=== PATIENT | female | born 1965 | race Caucasian/White ===

== ENCOUNTER 2016-08-25 10:09 | Emergency (ER) | payer BC ==
--- NOTE | 2016-08-25 10:19 | PDOC ---
History of Present Illness - General Chief Complaint: Respiratory Stated Complaint: EMPLOYEE, COUGH, CONGESTION Time Seen by Provider: 08/25/16 10:18 Past History - Past Medical History Allergies/Adverse Reactions: Allergies Allergy/AdvReac Type Severity Reaction Status Date / Time levofloxacin [From Levaquin] AdvReac DIZZY Verified 08/25/16 10:11 Home Medications: Ambulatory Orders Topiramate [Topamax] 25 mg PO DAILY 08/05/15 Diphenoxylate HCl/Atropine [Lomotil Tablet] 2 each PO TID #12 tablet 08/06/15 Anemia: No Asthma: Yes (ALLERGIC ASTHMA) Cancer: No Cardiac Disorders: No CVA: No COPD: (PNEUMONIA 2012) CHF: No Dementia: No Diabetes: No GI Disorders: No Disorders: No HTN: No Hypercholesterolemia: No Liver Disease: No Seizures: No Thyroid Disease: No Other medical history: migraines - Surgical History Orthopedic Surgery: Yes (ARTHROSCOPY LEFT KNEE) - Psycho/Social/Smoking Cessation Hx Anxiety: No Suicidal Ideation: No Smoking Status: Yes Smoking History: Never smoked Have you smoked in the past 12 months: No Number of Cigarettes Smoked Daily: 0 Information on smoking cessation initiated: No Hx Alcohol Use: No Drug/Substance Use Hx: No Substance Use Type: None Hx Substance Use Treatment: No *Physical Exam - Vital Signs Last Vital Signs Temp Pulse Resp BP Pulse Ox 98.7 F 113 H 18 122/80 99 08/25/16 10:12 08/25/16 10:12 08/25/16 10:12 08/25/16 10:12 08/25/16 10:12 *DC/Admit/Observation/Transfer - Attestations Physician Attestion: 08/25/16 10:18 I, Dr. Modesto Webster, attest that this document has been prepared under my direction and personally reviewed by me in its entirety. I further attest, that it accurately reflects all work, treatment, procedures and medical decision -making performed by me.
[2016-08-25 10:20] VITALS: BP 122/80; PULSE 113; TEMP 98.7; BMI 23.3
[2016-08-25] MEDS ORDERED: ALBUTEROL SO4 2.5/IPRATROPIUM 0.5 INH SOL 3 ML VIAL.NEB. NEB ONE ×2 (10:39→10:40)
[2016-08-25] MEDS ORDERED: predniSONE 20 MG TABLET (UD) ONE (10:39)
[2016-08-25] MEDS ORDERED: predniSONE 20 MG TABLET (UD) PO ONE (10:40)
--- NOTE | 2016-08-25 10:43 | PDOC ---
History of Present Illness - General Chief Complaint: Respiratory Stated Complaint: EMPLOYEE, COUGH, CONGESTION Time Seen by Provider: 08/25/16 10:18 History Source: Patient Exam Limitations: No Limitations - History of Present Illness Initial Comments: 08/25/16 10:40 Patient is here with complaints of chronic cough. States had same type of cough last fall but resolved in May. Had a recurrence of the same type of moist wheezy cough a month and a half ago and has been persistent. Has tried multiple different medications including antihistamines, Flonase or steroid nasal sprays , Mucinex and dzrv-rqu-zxesodf meds with no resolved. Has not seen any physician for evaluation or treatment. Denies fever, denies any purulent drainage from nose, denies productive cough or shortness of breath. 08/25/16 16:08 Timing/Duration: reports: changing over time, intermittent Severity: reports: mild, moderate Possible Cause: Yes: allergen exposure (uncertain), chronic episodes Associated Symptoms: reports: cough, fever/chills, nasal congestion. denies: dizziness, earache, nasal drainage, shortness of breath Past History - Travel Traveled outside of the country in the last 30 days: No Close contact w/someone who was outside of country & ill: No - Past Medical History Allergies/Adverse Reactions: Allergies Allergy/AdvReac Type Severity Reaction Status Date / Time levofloxacin [From Levaquin] AdvReac DIZZY Verified 08/25/16 10:11 Home Medications: Ambulatory Orders Albuterol Sulfate [Proventil HFA Inhaler -] 1 - 2 inh PO QID #1 inhaler Cetirizine HCl/Pseudoephedrine [Allergy+Congestion Relf-D Tab] 1 each PO DAILY # 30 tab 08/25/16 Prednisone [Deltasone -] 20 mg PO BID #8 tablet 08/25/16 Anemia: No Asthma: Yes (ALLERGIC ASTHMA) Cancer: No Cardiac Disorders: No CVA: No COPD: (PNEUMONIA 2012) CHF: No Dementia: No Diabetes: No GI Disorders: No Disorders: No HTN: No Hypercholesterolemia: No Liver Disease: No Seizures: No Thyroid Disease: No Other medical history: migraines - Surgical History Orthopedic Surgery: Yes (ARTHROSCOPY LEFT KNEE) - Psycho/Social/Smoking Cessation Hx Anxiety: No Suicidal Ideation: No Smoking Status: Yes Smoking History: Never smoked Have you smoked in the past 12 months: No Number of Cigarettes Smoked Daily: 0 Information on smoking cessation initiated: No Hx Alcohol Use: No Drug/Substance Use Hx: No Substance Use Type: None Hx Substance Use Treatment: No Respiratory Specific PMHX - Complaint Specific PMHX Bronchitis: No Pneumonia: No Review of Systems - Review of Systems Able to Perform ROS?: Yes Is the patient limited Cameroonian proficient: Yes Constitutional: Yes: Symptoms Reported, See HPI, Malaise. No: Fever HEENTM: Yes: Symptoms Reported, See HPI, Nose Congestion. No: Ear Pain, Throat Pain, Difficulty Swallowing Respiratory: Yes: See HPI, Cough (non productive ). No: Wheezing Integumentary: Yes: See HPI. No: Symptoms Reported All Other Systems: Reviewed and Negative *Physical Exam - Vital Signs Last Vital Signs Temp Pulse Resp BP Pulse Ox 98.7 F 113 H 18 122/80 99 08/25/16 10:12 08/25/16 10:12 08/25/16 10:12 08/25/16 10:12 08/25/16 10:12 - Physical Exam General Appearance: Yes: Nourished, Appropriately Dressed, Apparent Distress, Mild Distress HEENT: positive: EULALIO, Normal ENT Inspection, TMs Normal, Pharynx Normal Neck: positive: Tender, Supple. negative: Lymphadenopathy (R), Lymphadenopathy (L) Respiratory/Chest: positive: Lungs Clear, Normal Breath Sounds. negative: Respiratory Distress, Rhonchi, Stridor, Wheezing Cardiovascular: positive: Regular Rate Musculoskeletal: positive: Normal Inspection Extremity: positive: Normal Capillary Refill, Normal Inspection, Normal Range of Motion Integumentary: positive: Normal Color, Dry, Warm, Pale Neurologic: positive: drawer maker II-XII NML intact, Fully Oriented, Alert, Normal Mood/ Affect, Normal Response, Motor Strength 5/5 Progress Note - Progress Note Progress Note: ALLERGIC rhinitis, with postnasal drip causing chronic cough. Breath sounds much improved after DuoNeb and prednisone. Patient states feels mildly better improved. Will continue prednisone, albuterol pump, and antihistamines with decongestant and have follow-up with service manager for further evaluation and testing *DC/Admit/Observation/Transfer Diagnosis at time of Disposition: Allergic rhinitis Qualifiers: Allergic rhinitis trigger: other Allergic rhinitis seasonality: unspecified seasonality Qualified Code(s): J30.89 - Other allergic rhinitis - Discharge Dispostion Disposition: HOME Condition at time of disposition: Stable Admit: No - Prescriptions Prescriptions: Cetirizine HCl/Pseudoephedrine [Allergy+Congestion Relf-D Tab] 1 each PO DAILY # 30 tab Prednisone [Deltasone -] 20 mg PO BID #8 tablet Albuterol Sulfate [Proventil HFA Inhaler -] 1 - 2 inh PO QID #1 inhaler - Referrals Referrals: Ford Malcolm MD [Primary Care Provider] - Matt Avalos MD [Staff Physician] - - Patient Instructions Printed Discharge Instructions: DI for Allergic Rhinitis Additional Instructions: Rest, drink lots of fluids: Teas, water, soups Saltwater gargles. Consider humidifier in room at night Steamy showers/seem to face break up mucus Avoid contact with allergens, exposure to pollens, close windows on a windy day Lots of handwashing and good hygiene Continue yoew-dqv-iobsahv medications for symptomatic relief- may use allergic eyedrops for itching I COntinue Predisone as directed Albuterol Inhaler 2 puffs 4 times a day for 3 days then as needed Continue antihistamines daily until pollen season is over; Zyrtec, Claritin, Padmini during the daytime and Benadryl at nighttime as will make sleepy Tylenol or Motrin for fever and pain Followup with private physician in one to 2 days as needed Consider following up with an service manager/blanket cutter hand for skin testing and possible allergy shots Return to emergency department for worsened symptoms, fevers, dehydration - Post Discharge Activity
== END 2016-08-25 11:19 | disposition home or self-care (01) ==
LOC: JER 10:09 → JERFT 10:09
PROC: 3E0F7GC Introduction of Other Therapeutic Substance into Respiratory Tract, Via Natural or Artificial Opening (ICD-10-PCS; principal; 2016-08-25)
DX: J30.89 Other allergic rhinitis (principal)
CPT/HCPCS: 99281-25

== ENCOUNTER 2017-06-10 05:14 | Day surgery (SDC) | payer BC ==
[2017-06-03 11:55] VITALS: BMI 25.8
[2017-06-10 06:18] VITALS: TEMP 98.1
[2017-06-10] MEDS ORDERED: LIDOCAINE HCL 1%, 10 MG/ML (20ML VIAL) ONE (07:42)
[2017-06-10] MEDS ORDERED: methylPREDNISolone ACET (DEPO) 80 MG/1 ML VIAL ONE (07:42)
[2017-06-10] MEDS ORDERED: BUPIVACAINE HCL/PF 0.25% (2.5MG/ML) 10 ML VIAL ONE ×2 (07:42→07:45)
[2017-06-10] MEDS ORDERED: LIDOCAINE HCL/PF 2% SDV 5ML VIAL ONE (07:44)
[2017-06-10] MEDS ORDERED: PROPOFOL 20 ML ONE (07:45)
[2017-06-10] MEDS ORDERED: BUPIVACAINE HCL/PF 0.5% (5MG/ML) 10 ML VIAL ONE (07:45)
[2017-06-10] MEDS ORDERED: BUPIVACAINE HCL/PF 0.25% (2.5MG/ML) 10 ML VIAL IJ ONE (07:50)
[2017-06-10] MEDS ORDERED: LIDOCAINE HCL 1% PRESERVATIVE FREE - 30ML VIAL IJ ONE (07:51)
[2017-06-10] MEDS ORDERED: methylPREDNISolone ACET (DEPO) 80 MG/1 ML VIAL IJ ONE (07:51)
[2017-06-10 08:35] VITALS: PULSE 76
--- NOTE | 2017-06-10 12:02 | OP ---
DATE OF OPERATION: 06/10/2017 PREOPERATIVE DIAGNOSIS: L4-5 foraminal stenosis with lumbar radiculopathy. POSTOPERATIVE DIAGNOSIS: L4-5 foraminal stenosis with lumbar radiculopathy. ATTENDING SURGEON: Ford Scott MD PROCEDURE: 1. Left L4-5 epidural steroid injection. 2. Intraoperative fluoroscopy. ANESTHESIA: Local with IV sedation. ANESTHESIOLOGIST: Mine Phipps MD INDICATION: The patient is a 51-year-old female with back pain and lumbar radiculopathy. Because of her intractable symptoms and failure of conservative treatment over the past several weeks, she is consented for the first epidural steroid injection. The risks of the procedure include, but are not limited to, bleeding, infection, spinal headache, and neurological injury. The patient understands the indication for the procedure, procedure in detail, risks and benefits, and alternatives for treatment of her lumbar condition and wished to proceed. No guarantees were given for a favorable outcome. PROCEDURE IN DETAIL: After the patient was taken to the operating room, she was placed in prone position with a pillow under her hips. Lumbar region was cleaned with alcohol and prepped with Betadine. Skin wheal was raised with 5 mL of 1% Xylocaine. A 20-gauge spinal needle was inserted under AP and lateral fluoroscopic guidance from a left-sided approach to L4-5. [id number] technique was utilized, and there was no CSF or blood backflow. Depo-Medrol 80 mg and 1 mL of 0.25% Marcaine were injected. The needle was withdrawn. Sterile bandage was applied. The patient tolerated the procedure well and was returned back to supine position, moving bilateral extremities well. She did not complain of headache. FORD SCOTT M.D. [id number]
[2017-06-10 12:27] VITALS: BP 107/62
== END 2017-06-10 10:00 | disposition home or self-care (01) ==
LOC: JASU-SURG 05:14
PROVIDERS: ATTEND Neurological Surgery
PROC: 3E0R33Z Introduction of Anti-inflammatory into Spinal Canal, Percutaneous Approach (ICD-10-PCS; 2017-06-10)
PROC: B01BZZZ Fluoroscopy of Spinal Cord (ICD-10-PCS; 2017-06-10)
PROC: 3E0R3BZ Introduction of Anesthetic Agent into Spinal Canal, Percutaneous Approach (ICD-10-PCS; principal; 2017-06-10 07:30)
DX: M48.061 Spinal stenosis, lumbar region without neurogenic claudication (principal); M54.16 Radiculopathy, lumbar region
CPT/HCPCS: 76000-TC

== ENCOUNTER 2017-07-01 05:00 | Day surgery (SDC) | payer BC ==
[2017-06-26 12:54] VITALS: BMI 25.8
[2017-07-01 07:10] VITALS: TEMP 98.3
[2017-07-01] MEDS ORDERED: methylPREDNISolone ACET (DEPO) 80 MG/1 ML VIAL ONE (07:34)
[2017-07-01] MEDS ORDERED: BUPIVACAINE HCL/PF 0.25% (2.5MG/ML) 10 ML VIAL ONE (07:34)
[2017-07-01] MEDS ORDERED: LIDOCAINE HCL/PF 2% SDV 5ML VIAL ONE (08:03)
[2017-07-01] MEDS ORDERED: PROPOFOL 20 ML ONE (08:03)
[2017-07-01] MEDS ORDERED: LIDOCAINE HCL 1%, 10 MG/ML (20ML VIAL) NR ONE (08:15)
[2017-07-01] MEDS ORDERED: methylPREDNISolone ACET (DEPO) 80 MG/1 ML VIAL IJ ONE (08:17)
[2017-07-01] MEDS ORDERED: BUPIVACAINE HCL/PF 0.25% (2.5MG/ML) 10 ML VIAL IJ ONE (08:18)
--- NOTE | 2017-07-01 08:41 | OP ---
DATE OF OPERATION: 07/01/2017 PREOPERATIVE DIAGNOSIS: Acute left L5 radiculopathy. POSTOPERATIVE DIAGNOSIS: Acute left L5 radiculopathy. ATTENDING SURGEON: Ford Scott MD PROCEDURE: 1. Left L4-L5 epidural steroid injection. 2. Intraoperative fluoroscopy. ANESTHESIA: Local with IV sedation. ANESTHESIOLOGIST: Matt Roberson MD INDICATIONS: The patient is a 51-year-old female with 1-1/2 month history of intractable lower back pain and lumbar radiculopathy. Because of intractable symptoms and failure of conservative treatment, she has consented for her 2nd epidural steroid injection. The risks of the procedure include, but are not limited to, bleeding, infection, spinal headache, and neurological injury. The patient understands the indications for the procedure, the procedure in detail, risks and benefits, and alternative treatments for her lumbar condition, and she wishes to proceed. No guarantees were given for a favorable outcome. PROCEDURE IN DETAIL: After the patient was taken to the operating room, she was placed in the prone position with a pillow under her hips. Lumbar region was cleaned with alcohol and prepared with Betadine. A skin wheal was raised with 5 mL of 1% Xylocaine, and a 22-gauge spinal needle was inserted under AP fluoroscopic guidance from a left-sided approach to L4-L5 interlaminar space. Loss of resistance technique was utilized, and there was no CSF or blood backflow. Depo-Medrol 80 mg and 1 mL of 0.25% Marcaine were injected. The needle was withdrawn and sterile bandage was applied. The patient tolerated the procedure well. She was turned back to the supine position, moving bilateral lower extremities well. She did not complain of a headache. FORD SCOTT M.D. [id number]
[2017-07-01 10:30] VITALS: BP 107/63; PULSE 74
== END 2017-07-01 10:45 | disposition home or self-care (01) ==
LOC: JASU-SURG 05:00
PROVIDERS: ATTEND Neurological Surgery
PROC: 3E0R33Z Introduction of Anti-inflammatory into Spinal Canal, Percutaneous Approach (ICD-10-PCS; 2017-07-01)
PROC: B01BZZZ Fluoroscopy of Spinal Cord (ICD-10-PCS; 2017-07-01)
PROC: 3E0R3BZ Introduction of Anesthetic Agent into Spinal Canal, Percutaneous Approach (ICD-10-PCS; principal; 2017-07-01 08:00)
DX: M54.16 Radiculopathy, lumbar region (principal); M54.5 Low back pain
CPT/HCPCS: 76000-TC

== ENCOUNTER 2017-07-14 15:24 | Emergency (ER) | payer BC ==
[2017-07-14 15:32] VITALS: BP 123/81; PULSE 118; TEMP 98.6; BMI 25.8
--- NOTE | 2017-07-14 15:33 | PDOC ---
Rapid Medical Evaluation Time Seen by Provider: 07/14/17 15:29 Medical Evaluation: Allergies Allergy/AdvReac Type Severity Reaction Status Date / Time levofloxacin [From Levaquin] AdvReac DIZZY Verified 07/14/17 15:29 tramadol AdvReac Low Blood Verified 07/14/17 15:29 Pressure 07/14/17 15:30 I have performed a brief in-person evaluation of this patient. The patient presents with a chief complaint of: dizzy, lightheadedness, denies LOC, back pain (L4-L5) 12/08, followed by Dr. Monroy Pertinent physical exam findings: well appearing I have ordered the following: CBC, CMP The patient will proceed to the ED for further evaluation. Discharge Disposition - Diagnosis Dizziness - Referrals Referrals: Ford Malcolm MD [Primary Care Provider] - - Patient Instructions - Post Discharge Activity
[2017-07-14 16:46] LABS: BASO % 0.6 % (0-2.0); HEMATOCRIT 40.2 % (32.4-45.2); HEMOGLOBIN 13.5 GM/dL (10.7-15.3); LYMPH % 16.1 % (8-40); MCH 28.6 pg (25.7-33.7); MCHC 33.5 g/dl (32.0-36.0); MEAN CELL VOLUME 85.4 fl (80-96); MEAN PLT VOLUME 8.6 fl (7.5-11.1); MONO % 6.4 % (3.8-10.2); NEUT % 75.9 % (42.8-82.8); PLATELET COUNT 236 K/MM3 (134-434); RBC 4.71 M/mm3 (3.60-5.2); WHITE BLOOD COUNT 9.4 K/mm3 (4.0-10.0)
[2017-07-14] MEDS ORDERED: SODIUM CHLORIDE 0.9% 1000 ML INFUS.BAG IV ONE (16:47)
[2017-07-14] MEDS ORDERED: ONDANSETRON *ODT* 4 MG TABLET SL ONE (16:50)
--- NOTE | 2017-07-14 16:53 | PDOC ---
History of Present Illness - History of Present Illness Initial Comments: 07/14/17 17:07 The patient is a 51 year old female, with a significant past medical history of chronic back pain, migraines, who presents to the emergency department s/p near syncopal episode. The patient is an employee (Nurse) with the hospital and reports that while driving home she began to feel lightheaded. She denies syncope or loss of consciousness. The patient reports she was able to drive back to the hospital. However, after arriving at the hospital she began to feel lightheaded again. The patient also reports a gradual headache beginning this morning. The patient reports taking Excedrin for headache with mild relief. She denies any recent chest pain, palpitations or shortness of breath. She denies recent swelling or calf tenderness. She denies recent nausea, vomit, diarrhea or constipation. Allergies: Levofloxacin, Tramadol PCP: Dr. Malcolm <Esteban Betancourt - Last Filed: 07/14/17 17:07> - General History Source: Patient Exam Limitations: No Limitations <Gladis Carrera - Last Filed: 07/14/17 18:59> - General Chief Complaint: Lightheaded Stated Complaint: EMPLOYEE, LIGHTHEADED Time Seen by Provider: 07/14/17 15:29 Past History <Esteban Betancourt - Last Filed: 07/14/17 17:07> - Past Medical History Anemia: No Asthma: Yes (ALLERGIC ASTHMA) Cancer: No Cardiac Disorders: No CVA: No COPD: Yes (PNEUMONIA 2013) CHF: No Dementia: No Diabetes: No GI Disorders: No Disorders: No HTN: No Hypercholesterolemia: No Liver Disease: No Seizures: No Thyroid Disease: No Other medical history: HERNIATED DISCS. MIGRAINES. - Surgical History Abdominal Surgery: Yes Orthopedic Surgery: Yes (ARTHROSCOPY LEFT KNEE) - Suicide/Smoking/Psychosocial Hx Smoking Status: Yes Smoking History: Never smoked Have you smoked in the past 12 months: No Number of Cigarettes Smoked Daily: 0 Hx Alcohol Use: No Drug/Substance Use Hx: No Substance Use Type: None Hx Substance Use Treatment: No <Gladis Carrera - Last Filed: 07/14/17 18:59> - Past Medical History Allergies/Adverse Reactions: Allergies Allergy/AdvReac Type Severity Reaction Status Date / Time levofloxacin [From Levaquin] AdvReac DIZZY Verified 07/14/17 15:29 tramadol AdvReac Low Blood Verified 07/14/17 15:29 Pressure Home Medications: Ambulatory Orders Topiramate [Topamax] 50 mg PO BID 06/03/17 Gabapentin [Neurontin] 100 mg PO TID 06/29/17 Ondansetron [Zofran Odt -] 4 mg SL TID #21 od.tablet 07/14/17 Oseltamivir Phosphate [Tamiflu -] 75 mg PO BID #10 capsule 07/14/17 Review of Systems - Review of Systems Comments:: 07/14/17 17:20 GENERAL/CONSTITUTIONAL: No fever or chills. No weakness. HEAD, EYES, EARS, NOSE AND THROAT: No change in vision. No ear pain or discharge. No sore throat. CARDIOVASCULAR: No chest pain or shortness of breath. RESPIRATORY: No cough, wheezing, or hemoptysis. GASTROINTESTINAL: No nausea, vomiting, diarrhea or constipation. GENITOURINARY: No dysuria, frequency, or change in urination. MUSCULOSKELETAL: No joint or muscle swelling or pain. No neck or back pain. SKIN: No rash NEUROLOGIC: +Headache. +Lightheadedness. No loss of consciousness, or change in strength/sensation. ENDOCRINE: No increased thirst. No abnormal weight change. HEMATOLOGIC/LYMPHATIC: No anemia, easy bleeding, or history of blood clots. ALLERGIC/IMMUNOLOGIC: No hives or skin allergy. <Esteban Betancourt - Last Filed: 07/14/17 17:07> *Physical Exam - Vital Signs Last Vital Signs Temp Pulse Resp BP Pulse Ox 98.6 F 118 H 18 123/81 98 07/14/17 15:28 07/14/17 15:28 07/14/17 15:28 07/14/17 15:28 07/14/17 15:28 - Physical Exam Comments: 07/14/17 17:21 GENERAL: Awake, alert, and fully oriented, in no acute distress HEAD: No signs of trauma EYES: PERRLA, EOMI, sclera anicteric, conjunctiva clear ENT: +Dry mucus membranes. Auricles normal inspection, hearing grossly normal, nares patent, oropharynx clear without exudates. NECK: Normal ROM, supple, no lymphadenopathy, JVD, or masses LUNGS: Breath sounds equal, clear to auscultation bilaterally. No wheezes, and no crackles HEART: Regular rate and rhythm, normal S1 and S2, no murmurs, rubs or gallops BACK: +Lower back pain. ABDOMEN: Soft, nontender, normoactive bowel sounds. No guarding, no rebound. No masses EXTREMITIES: Normal range of motion, no edema. No clubbing or cyanosis. No cords, erythema, or tenderness NEUROLOGICAL: Cranial nerves II through XII grossly intact. Normal speech, normal gait SKIN: Warm, Dry, normal turgor, no rashes or lesions noted. <Esteban Betancourt - Last Filed: 07/14/17 17:07> - Vital Signs Last Vital Signs Temp Pulse Resp BP Pulse Ox 98.6 F 118 H 18 123/81 98 07/14/17 15:28 07/14/17 15:28 07/14/17 15:28 07/14/17 15:28 07/14/17 15:28 <Gladis Carrera - Last Filed: 07/14/17 18:59> ED Treatment Course - LABORATORY CBC & Chemistry Diagram: 07/14/17 16:22 07/14/17 16:21 - ADDITIONAL ORDERS Additional order review: 07/14/17 16:22 RBC 4.71 MCV 85.4 MCHC 33.5 RDW 13.0 MPV 8.6 Neutrophils % 75.9 Lymphocytes % 16.1 Monocytes % 6.4 Eosinophils % 1.0 Basophils % 0.6 <Esteban Betancourt - Last Filed: 07/14/17 17:07> - LABORATORY CBC & Chemistry Diagram: 07/14/17 16:22 07/14/17 16:21 <Gladis Carrera - Last Filed: 07/14/17 18:59> Medical Decision Making - Medical Decision Making 07/14/17 18:50 A/P: Patient here with dizziness and lightheadedness, no syncope, CBC, CMP, urine performed all reviewed and negative. CBC reveals no anemia, leukocytosis, bandemia, lymphocytosis, or neutrophilia. Platelets are within normal values at this time. CMP reveals no electrolyte imbalance, there is no transaminitis, renal function is normal, there is no hyperbilirubinemia. Laboratory Results - last 24 hr 07/14/17 07/14/17 07/14/17 16:21 16:22 17:31 WBC 9.4 RBC 4.71 Hgb 13.5 Hct 40.2 MCV 85.4 MCH 28.6 MCHC 33.5 RDW 13.0 Plt Count 236 MPV 8.6 Neutrophils % 75.9 Lymphocytes % 16.1 Monocytes % 6.4 Eosinophils % 1.0 Basophils % 0.6 Sodium 140 Potassium 3.6 Chloride 108 H Carbon Dioxide 24 Anion Gap 8 BUN 16 Creatinine 1.0 Creat Clearance w eGFR 58.69 Random Glucose 88 Calcium 8.7 Total Bilirubin 0.2 D AST 9 L ALT 22 Alkaline Phosphatase 105 Total Protein 7.5 Albumin 4.0 Urine HCG, Qual Negative CT was performed with no acute intracranial pathology. Twelve-lead EKG was performed and reviewed by me. There is normal sinus rhythm with a rate of 96. There is a nonspecific T-wave abnormality as compared to EKG of August 13 criteria for septal infarct is no longer present. Patient feels better after fluids, Toradol 30 mg for pain and Zofran. I will DC patient home to increase fluids, Tamiflu, Zofran as needed for nausea increase fluid intake I discussed the physical exam findings, ancillary test results and final diagnoses with the patient. I answered all of the patient's questions. The patient was satisfied with the care received and felt comfortable with the discharge plan and treatment plan. The patient will call to arrange follow-up and will return to the Emergency Department with any new, persistent or worsening symptoms. 07/14/17 18:57 <Gladis Carrera - Last Filed: 07/14/17 18:59> *DC/Admit/Observation/Transfer - Attestations Scribe Attestion: 07/14/17 17:22 Documentation prepared by Esteban Betancourt, acting as medical numerical control operator for Gladis Carrera, Emergency Dept, [employer] <Esteban Betancourt - Last Filed: 07/14/17 17:07> - Discharge Dispostion Admit: No <Gladis Carrera - Last Filed: 07/14/17 18:59> Diagnosis at time of Disposition: Dizziness - Discharge Dispostion Disposition: HOME Condition at time of disposition: Stable - Prescriptions Prescriptions: Ondansetron [Zofran Odt -] 4 mg SL TID #21 od.tablet Oseltamivir Phosphate [Tamiflu -] 75 mg PO BID #10 capsule - Referrals Referrals: Ford Malcolm MD [Primary Care Provider] - - Patient Instructions Printed Discharge Instructions: DI for Dizziness-Nonvertigo Additional Instructions: Please make sure to increase fluids if fever develops start the Tamiflu Zofran as ordered If chest pain, shortness of breath, any other concerns return to ER - Post Discharge Activity Forms/Work/School Notes: Back to Work
[2017-07-14] MEDS ORDERED: ONDANSETRON *ODT* 4 MG TABLET ONE (17:00)
[2017-07-14 17:13] LABS: CALCIUM 8.7 mg/dL (8.5-10.1); CHLORIDE 108 mmol/L (98-107); POTASSIUM 3.6 mmol/L (3.5-5.1); SODIUM 140 mmol/L (136-145)
[2017-07-14 17:19] LABS: ALK PHOS 105 U/L (45-117); ANION GAP 8 (8-16); BILIRUBIN,TOTAL 0.2 mg/dL (0.2-1.0); BLOOD UREA NITROGEN 16 mg/dL (7-18); CO2 24 mmol/L (21-32); GLUCOSE,RANDOM 88 mg/dL (74-106); SGOT/AST 9 U/L (15-37); SGPT/ALT 22 U/L (12-78); TOT PROT 7.5 g/dl (6.4-8.2)
[2017-07-14] MEDS ORDERED: KETOROLAC TROMETHAMINE 60 MG/2 ML VIAL IVPUSH ONE (17:51)
[2017-07-14] MEDS ORDERED: KETOROLAC TROMETHAMINE 30 MG/1 ML VIAL ONE (18:42)
--- NOTE | 2017-07-15 10:10 | EKG ---
Test Reason : Blood Pressure : / mmHG Vent. Rate : 096 BPM Atrial Rate : 096 BPM P-R Int : 158 ms QRS Dur : 080 ms QT Int : 348 ms P-R-T Axes : 054 047 047 degrees QTc Int : 439 ms NORMAL SINUS RHYTHM NONSPECIFIC T WAVE ABNORMALITY ABNORMAL ECG WHEN COMPARED WITH ECG OF 13-AUG-2014 12:03, CRITERIA FOR SEPTAL INFARCT ARE NO LONGER PRESENT Confirmed by KIMBERLY GEORGES, HORTENCIA ([id number]) on 07/15/2017 10:10:37 AM Referred By: Confirmed By:HORTENCIA HARRIS MD
== END 2017-07-14 19:12 | disposition home or self-care (01) ==
LOC: SUPCPDRO 15:24 → JERFT 15:24 → JER 15:24 → JERFT 19:12
PROC: 3E0333Z Introduction of Anti-inflammatory into Peripheral Vein, Percutaneous Approach (ICD-10-PCS; principal; 2017-07-14)
DX: R42 Dizziness and giddiness (principal); Z87.09 Personal history of other diseases of the respiratory system; Z86.69 Personal history of other diseases of the nervous system and sense organs
CPT/HCPCS: 36415; 70450-TC; 80053; 84703; 85025; 93005; 93010; 99282-25

== ENCOUNTER 2017-07-29 07:29 | Day surgery (SDC) | payer BC ==
[2017-07-29 08:04] VITALS: TEMP 98.2; BMI 25.0
[2017-07-29] MEDS ORDERED: LIDOCAINE HCL 1%, 10 MG/ML (20ML VIAL) ONE (09:45)
[2017-07-29] MEDS ORDERED: BUPIVACAINE HCL/PF 0.25% (2.5MG/ML) 10 ML VIAL ONE (09:45)
[2017-07-29] MEDS ORDERED: methylPREDNISolone ACET (DEPO) 80 MG/1 ML VIAL ONE ×2 (09:45→10:07)
[2017-07-29] MEDS ORDERED: MIDAZOLAM HCL 2 MG/2 ML SINGLE DOSE VIAL ONE (09:50)
[2017-07-29] MEDS ORDERED: PROPOFOL 20 ML ONE (10:03)
[2017-07-29] MEDS ORDERED: LIDOCAINE HCL 1%, 10 MG/ML (20ML VIAL) SNB ONE ×3 (10:06→10:09)
[2017-07-29] MEDS ORDERED: methylPREDNISolone ACET (DEPO) 80 MG/1 ML VIAL IM ONE ×2 (10:08→10:12)
[2017-07-29] MEDS ORDERED: BUPIVACAINE HCL/PF 0.25% (2.5MG/ML) 10 ML VIAL IJ ONE ×3 (10:08→10:09)
[2017-07-29] MEDS ORDERED: CLINDAMYCIN PHOSPHATE 600 MG/4 ML VIAL ONE (10:22)
--- NOTE | 2017-07-29 11:29 | OP ---
DATE OF OPERATION: 07/29/2017 PREOPERATIVE DIAGNOSES: 1. L4-5 degenerative disk disease. 2. Left lower extremity radiculopathy. POSTOPERATIVE DIAGNOSES: 1. L4-5 degenerative disk disease. 2. Left lower extremity radiculopathy. ATTENDING SURGEON: Ford Scott MD PROCEDURE: 1. Left L4-5 epidural steroid injection. 2. Intraoperative fluoroscopy. ANESTHESIA: Local with IV sedation. ANESTHESIOLOGIST: Matt Roberson MD INDICATION: The patient is a 52-year-old female with intractable lower back pain and left-sided lower extremity pain. MRI demonstrated degenerative disk disease at L4-5 with mild stenosis. She has undergone conservative treatment including physical therapy and has undergone 2 prior epidural steroid injections with some improvement in her symptomatology. She is here for a third injection. The risks of the procedure include, but are not limited to, bleeding, infection, spinal headache, and neurological injury. The patient understands the indication for the procedure, procedure in detail, risks and benefits and alternatives for the treatment of her lumbar condition and wishes to proceed. No guarantees are given for a favorable outcome. PROCEDURE IN DETAIL: After the patient was taken to the operating room, she was placed in the prone position with a pillow under her hips. The lumbar region was cleaned with alcohol and prepped with Betadine. A skin wheal was raised with 5 mL of 1% Xylocaine. A 22-gauge spinal needle was inserted under AP and lateral fluoroscopic guidance from a left-sided approach to L4-5 through interlaminar approach. Xoss-ve-[id number] technique was utilized, and there was no CSF or blood backflow. Depo-Medrol 80 mg and 1 mL of 0.25% Marcaine were injected. The needle was withdrawn. Sterile bandage was applied. The patient tolerated the procedure well and was returned back to supine position, moving bilateral extremities well. She did not complain of headache. FORD SCOTT M.D. [id number]
[2017-07-29 15:14] VITALS: PULSE 84
[2017-07-29 15:17] VITALS: BP 115/84
== END 2017-07-29 11:40 | disposition home or self-care (01) ==
LOC: JASU-SURG 07:29
PROVIDERS: ATTEND Neurological Surgery
PROC: 3E0R3BZ Introduction of Anesthetic Agent into Spinal Canal, Percutaneous Approach (ICD-10-PCS; 2017-07-29)
PROC: B01BZZZ Fluoroscopy of Spinal Cord (ICD-10-PCS; 2017-07-29)
PROC: 3E0R33Z Introduction of Anti-inflammatory into Spinal Canal, Percutaneous Approach (ICD-10-PCS; principal; 2017-07-29 09:30)
DX: M51.16 Intervertebral disc disorders with radiculopathy, lumbar region (principal)
CPT/HCPCS: 76000-TC-FY

== ENCOUNTER 2018-09-15 08:57 | Day surgery (SDC) | payer BC ==
[2018-09-10 14:23] VITALS: BMI 26.1
[2018-09-15] MEDS ORDERED: PROPOFOL 20 ML ONE ×2 (10:24)
[2018-09-15] MEDS ORDERED: LIDOCAINE HCL/PF 2% SDV 5ML VIAL ONE (10:24)
[2018-09-15 15:54] VITALS: TEMP 97.7
[2018-09-15 16:01] VITALS: BP 107/70; PULSE 77
--- NOTE | 2018-09-17 15:33 | PATH ---
Surgical Pathology Report Patient Name: BRAYDEN SMITH [facility]. Rec. #: [id number] /Age/Gender: 1965 (Age: 53) / F Account: [id number] Location: [facility] Taken: 09/15/2018 Received: 09/15/2018 Reported: 09/17/2018 Physicians: Raquel Ferreira M.D. Specimen(s) Received A: BX SECOND PORTION DUODENUM B: BX GASTRIC ANTRUM C: BX GE JUNCTION D: BX RIGHT COLON E: BX TRANSVERSE COLON F: BX DESCENDNG COLON G: BX RECTO-SIGMOID POLYP H: BX RECTUM Clinical History Abdominal pain, loose bowel movements Postoperative diagnosis: Peptic ulcer, irregular Z line, colon polyp Final Diagnosis A. SECOND PORTION DUODENUM, BIOPSY: DUODENAL MUCOSA WITH NO PATHOLOGIC FINDINGS. B. GASTRIC ANTRUM, BIOPSY: MILD CHRONIC GASTRITIS. IMMUNOSTAIN IS NEGATIVE FOR H PYLORI ORGANISMS. C. GE JUNCTION, BIOPSY: COLUMNAR (GASTRIC CARDIA-TYPE) MUCOSA SHOWING MILD CHRONIC INFLAMMATION. NEGATIVE FOR INTESTINAL METAPLASIA. NO ESOPHAGEAL (SQUAMOUS) MUCOSA IS IDENTIFIED. D. RIGHT COLON, BIOPSY: COLONIC MUCOSA WITH NO PATHOLOGIC FINDINGS. E. TRANSVERSE COLON, BIOPSY: COLONIC MUCOSA SHOWING BENIGN/REACTIVE LYMPHOID AGGREGATE. F. DESCENDING COLON, BIOPSY: COLONIC MUCOSA SHOWING BENIGN/REACTIVE LYMPHOID AGGREGATE. G. RECTO-SIGMOID, POLYP, BIOPSY: HYPERPLASTIC POLYP. H. RECTUM, BIOPSY: HYPERPLASTIC POLYP. Electronically Signed Janae Schmid M.D. Gross Description A. Received in formalin, labeled "biopsy second portion of duodenum" is a miller, irregular portion of soft tissue measuring 0.3 cm. in greatest dimension. The specimen is submitted in toto in one cassette. B. Received in formalin, labeled "biopsy gastric antrum" is a miller, irregular portion of soft tissue measuring 0.4 cm. in greatest dimension. The specimen is submitted in toto in one cassette. C. Received in formalin, labeled "biopsy GE junction" is a miller, irregular portion of soft tissue measuring 0.3 cm. in greatest dimension. The specimen is submitted in toto in one cassette. D. Received in formalin, labeled "biopsy right colon" are 2 miller, irregular portions of soft tissue averaging 0.3 cm. in greatest dimension. The specimens are submitted in toto in one cassette. E. Received in formalin, labeled "biopsy transverse colon" is a miller, irregular portion of soft tissue measuring 0.3 cm. in greatest dimension. The specimen is submitted in toto in one cassette. F. Received in formalin, labeled "biopsy descending colon" is a miller, irregular portion of soft tissue measuring 0.4 cm. in greatest dimension. The specimen is submitted in toto in one cassette. G. Received in formalin, labeled "biopsy rectosigmoid polyp" is a miller, irregular portion of soft tissue measuring 0.4 cm. in greatest dimension. The specimen is submitted in toto in one cassette. H. Received in formalin, labeled "biopsy rectum" is a miller, irregular portion of soft tissue measuring 0.3 cm. in greatest dimension. The specimen is submitted in toto in one cassette. 09/16/2018 [facility]09/16/2018
== END 2018-09-15 12:00 | disposition home or self-care (01) ==
LOC: FASU-ENDO 08:57
PROVIDERS: ATTEND Internal Medicine Gastroenterology
PROC: 0DBK8ZX Excision of Ascending Colon, Via Natural or Artificial Opening Endoscopic, Diagnostic (ICD-10-PCS; 2018-09-15)
PROC: 0DBL8ZX Excision of Transverse Colon, Via Natural or Artificial Opening Endoscopic, Diagnostic (ICD-10-PCS; 2018-09-15)
PROC: 0DBN8ZX Excision of Sigmoid Colon, Via Natural or Artificial Opening Endoscopic, Diagnostic (ICD-10-PCS; 2018-09-15)
PROC: 0DBP8ZX Excision of Rectum, Via Natural or Artificial Opening Endoscopic, Diagnostic (ICD-10-PCS; 2018-09-15)
PROC: 0DBM8ZX Excision of Descending Colon, Via Natural or Artificial Opening Endoscopic, Diagnostic (ICD-10-PCS; 2018-09-15)
PROC: 0DB48ZX Excision of Esophagogastric Junction, Via Natural or Artificial Opening Endoscopic, Diagnostic (ICD-10-PCS; principal; 2018-09-15 10:27)
PROC: 0DB68ZX Excision of Stomach, Via Natural or Artificial Opening Endoscopic, Diagnostic (ICD-10-PCS; 2018-09-15 10:27)
DX: K63.5 Polyp of colon (principal); K63.89 Other specified diseases of intestine; K62.1 Rectal polyp; K25.9 Gastric ulcer, unspecified as acute or chronic, without hemorrhage or perforation; K29.50 Unspecified chronic gastritis without bleeding; K22.8 Other specified diseases of esophagus; R10.13 Epigastric pain; R19.7 Diarrhea, unspecified
CPT/HCPCS: 88305-TC; 88342-TC

== ENCOUNTER 2019-01-05 09:26 | Day surgery (SDC) | payer BC ==
[2018-12-31 07:34] VITALS: BMI 26.4
[2019-01-05 10:06] VITALS: TEMP 98.4
[2019-01-05] MEDS ORDERED: MIDAZOLAM HCL 2 MG/2 ML SINGLE DOSE VIAL ONE (10:57)
[2019-01-05 12:08] VITALS: BP 105/73; PULSE 84
--- NOTE | 2019-01-10 16:19 | PATH ---
Surgical Pathology Report Patient Name: BRAYDEN SMITH [facility]. Rec. #: [id number] /Age/Gender: 1965 (Age: 53) / F Account: [id number] Location: [facility] Taken: 01/05/2019 Received: 01/05/2019 Reported: 01/10/2019 Physicians: Raquel Ferreira M.D. Specimen(s) Received GASTRIC ANTRUM Clinical History Healed gastric ulcer followup Postoperative diagnosis: Gastritis, diverticulum Final Diagnosis GASTRIC ANTRUM, BIOPSY: MILD CHRONIC GASTRITIS. IMMUNOSTAIN IS NEGATIVE FOR H. PYLORI ORGANISMS. Electronically Signed Janae Schmid M.D. Gross Description Received in formalin, labeled "biopsy gastric antrum" is a miller, irregular portion of soft tissue measuring 0.4 cm. in greatest dimension. The specimen is submitted in toto in one cassette. 01/06/201901/06/2019
== END 2019-01-05 12:15 | disposition home or self-care (01) ==
LOC: FASU-ENDO 09:26
PROVIDERS: ATTEND Internal Medicine Gastroenterology
PROC: 0DB68ZX Excision of Stomach, Via Natural or Artificial Opening Endoscopic, Diagnostic (ICD-10-PCS; principal; 2019-01-05 10:59)
DX: Z87.11 Personal history of peptic ulcer disease (principal); K29.50 Unspecified chronic gastritis without bleeding
CPT/HCPCS: 88305-TC; 88342-TC

== ENCOUNTER 2020-06-29 04:40 | Day surgery (SDC) | payer BC ==
[2020-06-28 12:31] VITALS: BMI 26.1
[2020-06-29] MEDS ORDERED: LIDOCAINE HCL 1%, 10 MG/ML (20ML VIAL) ONE (07:20)
[2020-06-29] MEDS ORDERED: DEXAMETHASONE SOD PHOSPHATE 4 MG/1 ML VIAL ONE (07:20)
[2020-06-29] MEDS ORDERED: PROPOFOL 20 ML ONE ×3 (07:54)
[2020-06-29] MEDS ORDERED: MIDAZOLAM HCL 2 MG/2 ML SINGLE DOSE VIAL ONE (07:54)
[2020-06-29] MEDS ORDERED: LIDOCAINE HCL 1%, 10 MG/ML (50 mL VIAL) INF ONE (08:08)
[2020-06-29] MEDS ORDERED: BUPIVACAINE HCL/PF 0.5% (5 MG/ML) 30 ML VIAL IJ ONE (08:08)
[2020-06-29] MEDS ORDERED: ceFAZolin SODIUM 1 GM VIAL IVPB ONE (08:10)
[2020-06-29] MEDS ORDERED: BENZOIN/ALOE VERA/STORAX/TOLU 58 ML BOTTLE ONE (09:00)
[2020-06-29] MEDS ORDERED: DEXAMETHASONE SOD PHOSPHATE 4 MG/1 ML VIAL NR ONE (09:05)
[2020-06-29] MEDS ORDERED: ONDANSETRON 4 MG/2 ML VIAL IVPUSH PRN (10:50)
[2020-06-29] MEDS ORDERED: oxyCODONE HCL 5 MG TABLET PO PRN (10:50)
[2020-06-29] MEDS ORDERED: LACTATED RINGERS SOLUTION 1,000 ML IV SCH (11:00)
[2020-06-29 13:06] VITALS: BP 110/67; PULSE 92; TEMP 97.7
== END 2020-06-29 13:50 | disposition home or self-care (01) ==
LOC: JASU-SURG 04:40
PROVIDERS: ATTEND Podiatrist
PROC: 0QSN04Z Reposition Right Metatarsal with Internal Fixation Device, Open Approach (ICD-10-PCS; 2020-06-29)
PROC: 0QBQ0ZZ Excision of Right Toe Phalanx, Open Approach (ICD-10-PCS; 2020-06-29)
PROC: 0SRP0JZ Replacement of Right Toe Phalangeal Joint with Synthetic Substitute, Open Approach (ICD-10-PCS; principal; 2020-06-29 08:00)
PROC: 0QBQ0ZZ Excision of Right Toe Phalanx, Open Approach (ICD-10-PCS; 2020-06-29 08:00)
DX: M20.41 Other hammer toe(s) (acquired), right foot (principal); M21.611 Bunion of right foot; M20.11 Hallux valgus (acquired), right foot
CPT/HCPCS: 73630-TC-RT-FY; 88304-TC; 88311-TC; 94760

== ENCOUNTER 2020-12-07 05:05 | Day surgery (SDC) | payer BC ==
[2020-12-06 11:57] VITALS: BMI 26.3
[2020-12-07] MEDS ORDERED: BUPIVACAINE HCL/PF 0.25% (2.5MG/ML) 10 ML VIAL ONE (09:15)
[2020-12-07] MEDS ORDERED: IOHEXOL 180 MG/1 ML ML IJ ONE (09:22)
[2020-12-07] MEDS ORDERED: BUPIVACAINE HCL/PF 2.5 MG/ML - 30 ML VIAL IJ ONE (09:22)
[2020-12-07] MEDS ORDERED: LIDOCAINE HCL 1% PRESERVATIVE FREE - 30ML VIAL IJ ONE (09:22)
[2020-12-07] MEDS ORDERED: DEXAMETHASONE SOD PHOSPHATE 10 MG/1 ML VIAL IVPUSH ONE (09:23)
[2020-12-07 10:40] VITALS: TEMP 97.8
[2020-12-07 11:27] VITALS: BP 126/72; PULSE 70
== END 2020-12-07 11:30 | disposition home or self-care (01) ==
LOC: JASU-SURG 05:05
PROVIDERS: ATTEND Pain Medicine Pain Medicine
PROC: 3E0T33Z Introduction of Anti-inflammatory into Peripheral Nerves and Plexi, Percutaneous Approach (ICD-10-PCS; 2020-12-07)
PROC: 3E0T3BZ Introduction of Anesthetic Agent into Peripheral Nerves and Plexi, Percutaneous Approach (ICD-10-PCS; principal; 2020-12-07 08:45)
DX: G89.4 Chronic pain syndrome (principal); G56.40 Causalgia of unspecified upper limb
CPT/HCPCS: 76000-TC-FY; 77003-TC-FY; J1100

== ENCOUNTER 2020-12-19 04:39 | Day surgery (SDC) | payer BC ==
[2020-12-17 18:24] VITALS: BMI 26.3
[2020-12-19] MEDS ORDERED: BUPIVACAINE HCL/PF 0.25% (2.5MG/ML) 10 ML VIAL ONE (07:42)
[2020-12-19] MEDS ORDERED: DEXAMETHASONE SOD PHOSPHATE 10 MG/1 ML VIAL ONE (07:42)
[2020-12-19] MEDS ORDERED: BUPIVACAINE HCL/PF 0.5% (5MG/ML) 10 ML VIAL ONE (07:43)
[2020-12-19] MEDS ORDERED: LIDOCAINE HCL/PF 1% SDV 5ML VIAL ONE (07:48)
[2020-12-19] MEDS ORDERED: LIDOCAINE HCL 1% PRESERVATIVE FREE - 30ML VIAL IJ ONE (10:09)
[2020-12-19] MEDS ORDERED: BUPIVACAINE HCL/PF 2.5 MG/ML - 30 ML VIAL IJ ONE (10:10)
[2020-12-19] MEDS ORDERED: IOHEXOL 180 MG/1 ML ML IJ ONE (10:11)
[2020-12-19 10:48] VITALS: TEMP 97.5
[2020-12-19 12:09] VITALS: BP 96/80; PULSE 80
== END 2020-12-19 12:53 | disposition home or self-care (01) ==
LOC: JASU-SURG 04:39
PROVIDERS: ATTEND Pain Medicine Pain Medicine
PROC: 3E0T3BZ Introduction of Anesthetic Agent into Peripheral Nerves and Plexi, Percutaneous Approach (ICD-10-PCS; principal; 2020-12-19 09:15)
DX: G90.59 Complex regional pain syndrome I of other specified site (principal)
CPT/HCPCS: 76000-TC-FY; J1100

== ENCOUNTER 2021-01-02 04:24 | Day surgery (SDC) | payer BC ==
[2020-12-27 15:49] VITALS: BMI 26.3
[2021-01-02] MEDS ORDERED: LIDOCAINE HCL 1% PRESERVATIVE FREE - 30ML VIAL IJ ONE (08:13)
[2021-01-02] MEDS ORDERED: BUPIVACAINE HCL/PF 0.25% (2.5MG/ML) 10 ML VIAL ONE (08:41)
[2021-01-02] MEDS ORDERED: LIDOCAINE HCL/PF 1% SDV 5ML VIAL ONE (08:41)
[2021-01-02] MEDS ORDERED: BUPIVACAINE HCL/PF 0.25% (2.5MG/ML) 10 ML VIAL IJ ONE ×2 (09:18→09:26)
[2021-01-02] MEDS ORDERED: IOHEXOL 180 MG/1 ML ML IJ ONE ×2 (09:19→09:24)
[2021-01-02 11:00] VITALS: BP 120/77; PULSE 78; TEMP 98
== END 2021-01-02 11:05 | disposition home or self-care (01) ==
LOC: JASU-SURG 04:24
PROVIDERS: ATTEND Pain Medicine Pain Medicine
PROC: 3E0T33Z Introduction of Anti-inflammatory into Peripheral Nerves and Plexi, Percutaneous Approach (ICD-10-PCS; 2021-01-02)
PROC: 3E0T3BZ Introduction of Anesthetic Agent into Peripheral Nerves and Plexi, Percutaneous Approach (ICD-10-PCS; 2021-01-02)
PROC: 3E0T33Z Introduction of Anti-inflammatory into Peripheral Nerves and Plexi, Percutaneous Approach (ICD-10-PCS; 2021-01-02)
PROC: 3E0T3BZ Introduction of Anesthetic Agent into Peripheral Nerves and Plexi, Percutaneous Approach (ICD-10-PCS; principal; 2021-01-02 08:30)
DX: G89.4 Chronic pain syndrome (principal); G56.41 Causalgia of right upper limb
CPT/HCPCS: 76000-TC-FY

== ENCOUNTER 2021-01-09 04:22 | Day surgery (SDC) | payer BC ==
[2021-01-07 15:29] VITALS: BMI 24.7
[2021-01-09] MEDS ORDERED: BUPIVACAINE HCL/PF 0.75% 10 ML VIAL ONE (10:13)
[2021-01-09] MEDS ORDERED: LIDOCAINE HCL 1%, 10 MG/ML (20ML VIAL) ONE (10:13)
[2021-01-09] MEDS ORDERED: BUPIVACAINE HCL/PF 0.25% (2.5MG/ML) 10 ML VIAL ONE (10:15)
[2021-01-09] MEDS ORDERED: IOHEXOL 180 MG/1 ML ML IJ ONE (10:26)
[2021-01-09] MEDS ORDERED: LIDOCAINE HCL 1%, 10 MG/ML (20ML VIAL) SQ ONE (10:28)
[2021-01-09] MEDS ORDERED: BUPIVACAINE HCL/PF 0.25% (2.5MG/ML) 10 ML VIAL IJ ONE ×2 (10:32→10:39)
[2021-01-09 12:14] VITALS: BP 118/73; PULSE 80; TEMP 98.8
== END 2021-01-09 12:05 | disposition home or self-care (01) ==
LOC: JASU-SURG 04:22
PROVIDERS: ATTEND Pain Medicine Pain Medicine
PROC: 3E0T33Z Introduction of Anti-inflammatory into Peripheral Nerves and Plexi, Percutaneous Approach (ICD-10-PCS; 2021-01-09)
PROC: 3E0T3BZ Introduction of Anesthetic Agent into Peripheral Nerves and Plexi, Percutaneous Approach (ICD-10-PCS; principal; 2021-01-09 09:30)
DX: G90.59 Complex regional pain syndrome I of other specified site (principal)
CPT/HCPCS: 76000-TC-FY

== ENCOUNTER 2021-01-23 04:24 | Day surgery (SDC) | payer BC ==
[2021-01-14 09:59] VITALS: BMI 24.7
[2021-01-23] MEDS ORDERED: BUPIVACAINE HCL/PF 0.5% (5MG/ML) 10 ML VIAL ONE (10:38)
[2021-01-23] MEDS ORDERED: DEXAMETHASONE SOD PHOSPHATE 10 MG/1 ML VIAL ONE (10:38)
[2021-01-23] MEDS ORDERED: TRIAMCINOLONE ACET 40MG/1ML VIAL ONE (10:38)
[2021-01-23] MEDS ORDERED: LIDOCAINE HCL/PF 1% SDV 5ML VIAL ONE ×2 (10:38→12:16)
[2021-01-23] MEDS ORDERED: BUPIVACAINE HCL/PF 0.75% 10 ML VIAL ONE (10:39)
[2021-01-23] MEDS ORDERED: MIDAZOLAM HCL 2 MG/2 ML SINGLE DOSE VIAL ONE (11:52)
[2021-01-23] MEDS ORDERED: BUPIVACAINE HCL/PF 0.25% (2.5MG/ML) 10 ML VIAL ONE (12:00)
[2021-01-23] MEDS ORDERED: LIDOCAINE HCL 1% PRESERVATIVE FREE - 30ML VIAL IJ ONE ×2 (12:02)
[2021-01-23] MEDS ORDERED: BUPIVACAINE HCL/PF 0.25% (2.5MG/ML) 10 ML VIAL IJ ONE ×2 (12:02→12:26)
[2021-01-23] MEDS ORDERED: IOHEXOL 180 MG/1 ML ML IJ ONE ×2 (12:26)
[2021-01-23 14:39] VITALS: TEMP 98.2
[2021-01-23 15:30] VITALS: BP 115/75; PULSE 86
== END 2021-01-23 15:15 | disposition home or self-care (01) ==
LOC: JASU-SURG 04:24
PROVIDERS: ATTEND Pain Medicine Pain Medicine
PROC: 3E0T3BZ Introduction of Anesthetic Agent into Peripheral Nerves and Plexi, Percutaneous Approach (ICD-10-PCS; 2021-01-23)
PROC: 3E0T3BZ Introduction of Anesthetic Agent into Peripheral Nerves and Plexi, Percutaneous Approach (ICD-10-PCS; principal; 2021-01-23 11:00)
DX: G90.59 Complex regional pain syndrome I of other specified site (principal)
CPT/HCPCS: 76000-TC-FY; J1100

== ENCOUNTER 2021-01-30 04:15 | Day surgery (SDC) | payer BC ==
[2021-01-28 17:24] VITALS: BMI 24.7
[~2021-01-30 04:15] MED LIST: BUPIVACAINE HCL/PF 0.5% (5MG/ML) 10 ML VIAL PNB ONE; IOHEXOL 180 MG/1 ML ML IJ ONE; LIDOCAINE 1% P/F 10 MG/ML VIAL SNB ONE
[2021-01-30] MEDS ORDERED: TRIAMCINOLONE ACET 40MG/1ML VIAL ONE (07:20)
[2021-01-30] MEDS ORDERED: BUPIVACAINE HCL/PF 0.5% (5MG/ML) 10 ML VIAL ONE (07:21)
[2021-01-30] MEDS ORDERED: DEXAMETHASONE SOD PHOSPHATE 4 MG/1 ML VIAL ONE (07:21)
[2021-01-30] MEDS ORDERED: BUPIVACAINE HCL/PF 0.75% 10 ML VIAL ONE (07:21)
[2021-01-30] MEDS ORDERED: LIDOCAINE HCL/PF 1% SDV 5ML VIAL ONE (07:22)
[2021-01-30] MEDS ORDERED: IOHEXOL 180 MG/1 ML ML IJ ONE ×2 (08:09)
[2021-01-30] MEDS ORDERED: LIDOCAINE 1% P/F 10 MG/ML VIAL SNB ONE ×2 (08:09)
[2021-01-30] MEDS ORDERED: BUPIVACAINE HCL/PF 0.25% (2.5MG/ML) 10 ML VIAL IJ ONE ×2 (08:10)
[2021-01-30] MEDS ORDERED: BUPIVACAINE HCL/PF 0.25% (2.5MG/ML) 10 ML VIAL ONE (08:10)
[2021-01-30 12:26] VITALS: BP 113/75; PULSE 74; TEMP 98.5
== END 2021-01-30 12:10 | disposition home or self-care (01) ==
LOC: JASU-SURG 04:15
PROVIDERS: ATTEND Pain Medicine Pain Medicine
PROC: 3E0T3BZ Introduction of Anesthetic Agent into Peripheral Nerves and Plexi, Percutaneous Approach (ICD-10-PCS; 2021-01-30)
PROC: 3E0T3BZ Introduction of Anesthetic Agent into Peripheral Nerves and Plexi, Percutaneous Approach (ICD-10-PCS; principal; 2021-01-30 07:30)
DX: G90.59 Complex regional pain syndrome I of other specified site (principal)
CPT/HCPCS: 76000-TC-FY

== ENCOUNTER 2021-02-26 04:45 | Day surgery (SDC) | payer BC ==
[2021-02-26] MEDS ORDERED: LIDOCAINE HCL 1% PRESERVATIVE FREE - 30ML VIAL INF ONE ×3 (13:48)
[2021-02-26 16:55] VITALS: PULSE 89
[2021-02-26 17:12] VITALS: BP 113/84; TEMP 97.8
== END 2021-02-26 17:15 | disposition home or self-care (01) ==
LOC: JASU-SURG 04:45
PROVIDERS: ATTEND Pain Medicine Pain Medicine
PROC: 01HY3MZ Insertion of Neurostimulator Lead into Peripheral Nerve, Percutaneous Approach (ICD-10-PCS; principal; 2021-02-26 13:31)
DX: G89.4 Chronic pain syndrome (principal); M79.671 Pain in right foot
CPT/HCPCS: 64555; C1897